=== PATIENT | male | born 1995 | race Caucasian/White ===

== ENCOUNTER 2016-04-02 15:47 | Emergency (ER) | payer BC, MEDICAID ==
--- NOTE | 2016-04-02 16:14 | ED Physician Chart ---
Chief Complaint/HPI - Patient Information Date Seen:: 04/02/16 Time Seen:: 16:08 Chief Complaint:: cut finger History of Present Illness:: at 8;30 am today pt was working on a piece of metal in a vice...he was hammering the matal when it slipped and he cut his finger on sharp metal. cut on medial left index finger. bleeding ctrld. no loss strength or rom or sensation. no pallor. no kierra bleed. pt rasied in [place] but unsure of last d tet. Allergies:: Allergies Allergy/AdvReac Type Severity Reaction Status Date / Time No Known Allergies Allergy Verified 04/02/16 16:00 Vitals:: Vital Signs - 8 hr 04/02/16 15:47 Temp 97.1 F HR 97 RR 16 BP 108/71 O2 Sat % 97 Historian:: Patient Review of Systems - Review of Systems General/Constitutional: No fever, No chills, No weight loss, No weakness, No diaphoresis, No edema, No loss of appetite Skin: No skin lesions, No rash, No bruising Head: No headache, No light-headedness Eyes: No loss of vision, No pain, No diplopia ENT: No earache, No nasal drainage, No sore throat, No tinnitus Neck: No neck pain, No swelling, No thyromegaly, No stiffness, No mass noted Cardio Vascular: No chest pain, No palpitations, No PND, No orthopnea, No edema Pulmonary: No SOB, No cough, No sputum, No wheezing GI: No nausea, No vomiting, No diarrhea, No pain, No melena, No hematochezia, No constipation, No hematemesis G/U: No dysuria, No frequency, No hematuria Musculoskeletal: No bone or joint pain, No back pain, No muscle pain Endocrine: No polyuria, No polydipsia Psychiatric: No prior psych history, No depression, No anxiety, No suicidal ideation Hematopoietic: No bruising, No lymphadenopathy Allergic/Immuno: No urticaria, No angioedema Neurological: No syncope, No focal symptoms, No weakness, No paresthesia, No headache, No seizure, No dizziness, No confusion, No vertigo Past Medical History - Past Medical History Past Medical History: No significant medical hx Social History: Non Smoker, No Alcohol, Single Medication: Reviewed Family Medical History - Family Member Mother Hx Family Diabetes: Yes Physical Exam - Physical Examination General/Constitutional: Awake, Well-developed, well-nourished, Alert, No distress, GCS 15, Non-toxic appearing, Ambulatory Head: Atraumatic Eyes: Lids, conjuctiva normal, PERRL, EOMI Skin: Nl inspection, No rash, No skin lesions, No ecchymosis, Well hydrated, No lymphadenopathy ENMT: External ears, nose nl, Nasal exam nl, Lips, teeth, gums nl Neck: Nontender, Full ROM w/o pain, No JVD, No nuchal rigidity, No bruit, No mass, No stridor Respiratory: Nl effort/Exclusion, Clear to Auscultation, No Wheeze/Rhonchi/Rales Cardio Vascular: RRR, No murmur, gallop, rubs, NL S1 S2 GI: No tenderness/rebounding/guarding, No organomegaly, No hernia, Normal BS's, Nondistended, No mass/bruits, No McBurney tenderness : No CVA tenderness Extremities: No tenderness or effusion, Full ROM, normal strength in all extremities, No edema, Normal digits & nails Other Extremities comments:: left index finger has a partial thickness ..superficial skin tissue avulsion to the medial /volar base of finger. no open deep lac. avulsed tisue is dry and rugated and would be impossible to set flat and looks devitalized. distal finger has good cap refill. Neuro/Psych: Alert/oriented, DTR's symmetric, Normal sensory exam, Normal motor strength, Judgement/insight normal, Mood normal, Normal gait, No focal deficits Misc: normal gait, Normal back, No paraspinal tenderness Assessment - Procedures Procedures:: left index finger wound. devitalized tissue removed. wound washed and bacitracin and dressing placed. ED Septic Shock - . Is Septic Shock (SBP<90, OR Lactate>4 mmol\L) present?: No - <6hrs of presentation: Vital Signs: Vital Signs - 8 hr 04/02/16 15:47 Temp 97.1 F HR 97 RR 16 BP 108/71 O2 Sat % 97 Reassessment (Disposition) - Reassessment Reassessment Condition:: Improved - Diagnosis Diagnosis:: superficial tissue avulsion from medial/dorsal left index finger. - Aftercare/Follow up Instructions Notes:: pt to do routine wound care. wash 2x/day and apply bacitracin. return if worse. - Patient Disposition Discharge/Transfer:: Home Condition at Disposition:: Improved
[2016-04-02] MEDS ORDERED: Bacitracin pkt 1 gm Pkt TP ONE (16:26)
[2016-04-02] MEDS ORDERED: Bacitracin pkt 1 gm Pkt TP STA (16:35)
== END 2016-04-02 16:40 | disposition home or self-care (01) ==
LOC: ER 15:47
DX: S61.201A Unspecified open wound of left index finger without damage to nail, initial encounter (principal)
CPT/HCPCS: 99283; 90715; Z7610; Z7502